=== PATIENT | female | born 1945 | race Caucasian/White ===

== ENCOUNTER 2018-02-25 10:29 | Outpatient (CLI) | payer OTHER ==
[~2018-02-25 10:29] MED LIST: AMLODIPINE BESYL5 MG PO; COZAAR100 MG PO; LUMIGAN2.5 M1 OP; PERCOCET 5/3251 TAB PO; PRILOSEC OTC20 MG PO; VITAMIN D400 UNI2 PO; ZYLOPRIM100 M1 PO; [UNRECOGNIZED DRUG - OTHER] PO
== END 2018-02-25 10:31 | disposition home or self-care (01) ==
LOC: RAD 10:29
DX: M25.561 Pain in right knee (principal); M25.562 Pain in left knee

== ENCOUNTER 2018-06-10 09:49 | Outpatient (CLI) | payer OTHER | END 2018-06-10 09:56 | disposition home or self-care (01) | LOC: RAD 09:49 | DX: M25.551 Pain in right hip (principal); M25.552 Pain in left hip ==

== ENCOUNTER 2019-05-24 15:10 | Outpatient (CLI) | payer OTHER | END 2019-05-24 15:19 | disposition home or self-care (01) | LOC: RAD 15:10 | DX: M25.561 Pain in right knee (principal); M25.562 Pain in left knee; M25.551 Pain in right hip; M25.552 Pain in left hip ==

== ENCOUNTER 2020-09-20 14:10 | Outpatient (CLI) | payer OTHER | END 2020-09-20 14:18 | disposition home or self-care (01) | LOC: RAD 14:10 | PROVIDERS: ATTEND Orthopaedic Surgery | DX: M16.12 Unilateral primary osteoarthritis, left hip (principal); M25.551 Pain in right hip; M25.561 Pain in right knee; M25.562 Pain in left knee ==

== ENCOUNTER 2021-04-24 14:39 | Outpatient (CLI) | payer OTHER | END 2021-04-24 14:56 | disposition home or self-care (01) | LOC: RAD 14:39 | PROVIDERS: ATTEND Orthopaedic Surgery | DX: M25.551 Pain in right hip (principal); M25.552 Pain in left hip; M25.561 Pain in right knee; M25.562 Pain in left knee ==

== ENCOUNTER 2021-06-21 07:49 | Outpatient (CLI) | payer OTHER | END 2021-06-21 07:50 | disposition home or self-care (01) | LOC: NUCLEAR 07:49 | PROVIDERS: ATTEND Orthopaedic Surgery | DX: M25.461 Effusion, right knee (principal); M25.462 Effusion, left knee; I87.2 Venous insufficiency (chronic) (peripheral) ==

== ENCOUNTER 2021-07-11 07:15 | Inpatient (IN) | payer OTHER ==
[~2021-07-11] VITALS: Ht 144.8 cm; Wt 49.9 kg
[2021-07-17] MEDS ORDERED: MAXIMUM D3325 MCG (11:25)
[2021-07-17] MEDS ORDERED: OMEPRAZOLE20 MG (11:25)
== END 2021-07-19 17:34 | DRG 470 ==
LOC: SURH 07-17 07:00 → O/R 07-17 07:15 → SURG 07-17 07:15 → SURH 07-17 07:15 → SURG 07-17 17:59
PROVIDERS: ADMIT Orthopaedic Surgery; ATTEND Orthopaedic Surgery
PROC: 0SRB0J9 Replacement of Left Hip Joint with Synthetic Substitute, Cemented, Open Approach (ICD-10-PCS; principal; 2021-07-17 07:00)
DX: M16.12 Unilateral primary osteoarthritis, left hip (principal); D62 Acute posthemorrhagic anemia

== ENCOUNTER 2021-08-19 16:44 | Emergency (ER) | payer OTHER ==
[~2021-08-19] VITALS: Ht 149.9 cm; Wt 50.8 kg
[~2021-08-19 16:44] MED LIST changes: +MAXIMUM D3325 MCG; +OMEPRAZOLE20 MG
== END 2021-08-19 21:01 | disposition home or self-care (01) ==
LOC: ER 16:44
DX: M19.09 Primary osteoarthritis, other specified site (principal); M79.604 Pain in right leg; M25.551 Pain in right hip